=== PATIENT | female | born 1960 | race Caucasian/White ===

== ENCOUNTER → 2019-02-11 | Day surgery (SDC) | payer BC, OTHER ==
[~2019-02-11] VITALS: Ht 149.9 cm; Wt 37.6 kg
[~2019-02-11] MED LIST: ADVIL200 M1 PO; BRIMONIDINE TART5 ML OPHTHALMIC; CELEXA 20 MG TA20 MG PO; CLONAZEPAM 0.50.5 M1 PO; ESOMEPRAZOLE MA40 MG PO; NORVASC5 MG PO; TIMOLOL MALEATE5 M1 OPHTHALMIC; TYLENOL EXTRA500 MG PO
--- NOTE | 2019-02-11 07:41 | H ---
[facility] [place] [address] HISTORY AND PHYSICAL Name: KATHERYN HECTOR Room #: 150-2 [facility] M.R.#: [id number] Admission: 02/11/19 Attend Phys: Diaz Dailey MD Discharge: Date of : 64 Report #: [id number] THIS REPORT FOR: //name// CC: Diaz Adler Her procedure is scheduled for the 02/11/2019. HISTORY OF PRESENT ILLNESS: The patient has difficulty breathing through her nose and noted a lump on the left side of her nose and sinuses. She has history of frequent sinusitis as well as not breathing very well through the left side of her nose. PAST MEDICAL HISTORY: Otherwise, significant for hepatitis A and high blood pressure. MEDICATIONS: Include amlodipine, Zyrtec, Celexa, Klonopin, Bentyl, Nexium, Flonase, and Skelaxin. ALLERGIES: She is allergic to PENICILLIN, SULFA, and PROTONIX. PHYSICAL EXAMINATION: She has a deviated nasal septum that severely decreases the left nasal airway. Her oropharynx and oral cavity were clear. IMPRESSION: Deviated nasal septum with nasal airway obstruction. PLAN: Nasal septoplasty. <ELECTRONICALLY SIGNED> By: Diaz Dailey MD 02/11/19 0741 [id number] Diaz Dailey MD /nt
--- NOTE | 2019-02-11 08:09 | EKG ---
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1960 Requested By: Diaz Dailey Order Number: [id number] MD: Delroy Oshea Measurements Intervals [place] Rate: 70 P: 82 [place]: 198 QRS: 4 QRSD: 108 T: 4 QT: 522 QTc: 564 Interpretive Statements Sinus rhythm Left ventricular hypertrophy Nonspecific ST segment abnormality Prolonged QT interval No previous ECG available for comparison Electronically Signed On 02-11-2019 8:09:53 [employer] PROC[employer] by Delroy Oshea [email or web address] <ELECTRONICALLY SIGNED> By: Delroy Oshea MD, [facility] 02/11/19 [id number] [id number] Delroy Oshea MD, FACC /EPI
== END | disposition home or self-care (01) ==
LOC: TBA 05:52 → OR 05:52 → TBA 05:53 → OR 07:47
DX: J34.2 Deviated nasal septum (principal); Z53.8 Procedure and treatment not carried out for other reasons; I10 Essential (primary) hypertension; Z88.0 Allergy status to penicillin; Z88.2 Allergy status to sulfonamides; Z88.8 Allergy status to other drugs, medicaments and biological substances; Z79.899 Other long term (current) drug therapy; Z86.19 Personal history of other infectious and parasitic diseases
CPT/HCPCS: 50010